=== PATIENT | female | born 1990 | race Two or more races ===

== ENCOUNTER → 2023-03-09 | Outpatient (CLI) | payer OTHER | LOC: M RAD 12:40 | PROVIDERS: ATTEND Obstetrics & Gynecology | DX: N92.1 Excessive and frequent menstruation with irregular cycle (principal) ==

== ENCOUNTER → 2023-11-29 | Outpatient (REF) | payer OTHER ==
[2023-11-29 12:41] LABS: HEMATOCRIT 41.1 % (36.0-47.0); HEMOGLOBIN 13.5 g/dl (12.0-15.5); MEAN CORPUSCULAR HGB CONC 32.8 g/dl (32.0-36.5); MEAN CORPUSCULAR VOLUME 91.3 fl (80.0-96.0); PLATELET COUNT, AUTOMATED 424 10^3/uL (150-450)
[2023-11-29 13:10] LABS: PROGESTERONE 12.54 NG/ML
[2023-11-29 13:40] LABS: HIV 1&2 SCREEN NEGATIVE (NEGATIVE)
[2023-11-29 13:49] LABS: HEPATITIS C VIRUS ABY INDEX 0.02 INDEX (<0.8)
[2023-11-29 13:50] LABS: HCG, SERUM QUANTITATIVE 21223.3 MIU/ML (<4.2)
== END ==
LOC: M LAB REF 11:52
PROVIDERS: ATTEND Obstetrics & Gynecology
DX: O36.80X0 Pregnancy with inconclusive fetal viability, not applicable or unspecified (principal)